=== PATIENT | male | born 1975 | race Caucasian/White ===

== ENCOUNTER 2020-01-22 10:25 | Emergency (ER) | payer OTHER ==
[2020-01-22 10:40] VITALS: BP 156/99; PULSE 98; RESP 18; TEMP 98.1
--- NOTE | 2020-01-22 11:13 | XR ---
Left ankle HISTORY: Trauma and pain 3 views the left ankle, no comparisons There is mild soft tissue swelling present. Small ossific density is present distal to the medial mal leolus. Alignment and joint spaces are maintained. IMPRESSION: There may be a small avulsion injury at the level of the medial malleolus. No dislocation .
--- NOTE | 2020-01-22 11:17 | ED ---
Lower Extremity Injury HPI - General Chief Complaint: Extremity Injury, Lower Stated Complaint: [facility] Ankle injury Time Seen by Provider: 01/22/20 10:41 Source: patient Mode of arrival: ambulatory Limitations: no limitations - History of Present Illness Initial Comments: 44-year-old male presented for chief complaint of left ankle pain after injury. Patient states he is walking at work when he inverted his left ankle. Patient admits to pain of the medial and lateral malleolus. Patient denies any injury to the knee denies any head neck injury denies any injury to the low back or hip. Patient denies any numbness tingling or loss of sensation of the lower extremities he denies additional complaints upon arrival patient appears nontoxic. - Related Data Home Medications Medication Instructions Recorded Confirmed ALPRAZolam [Xanax] 0.25 - 0.5 mg PO BID PRN 12/21/13 01/22/20 Ibuprofen [Motrin] 600 mg PO Q6HR PRN 01/22/20 01/22/20 Losartan Potassium 100 mg PO DAILY 01/22/20 01/22/20 Allergies Allergy/AdvReac Type Severity Reaction Status Date / Time No Known Allergies Allergy Verified 01/22/20 11:21 Review of Systems ROS Statement: Those systems with pertinent positive or pertinent negative responses have been documented in the HPI. ROS Other: All systems not noted in ROS Statement are negative. Past Medical History Past Medical History: Hypertension History of Any Multi-Drug Resistant Organisms: None Reported Past Surgical History: No Surgical Hx Reported Additional Past Surgical History / Comment(s): dental. Past Psychological History: Anxiety Smoking Status: Never smoker Past Alcohol Use History: Rare Past Drug Use History: None Reported General Exam - General Exam Comments Initial Comments: General: The patient is awake and alert, in no distress, and does not appear acutely ill. Eye: Pupils are equal, round and reactive to light, extra-ocular movements are intact. No nystagmus. There is normal conjunctiva bilaterally. No signs of icterus. Cardiovascular: There is a regular rate and rhythm. No murmur, rub or gallop is appreciated. Respiratory: Lungs are clear to auscultation, respirations are non-labored, breath sounds are equal. No wheezes, stridor, rales, or rhonchi. Musculoskeletal: No openings of the skin. No bruising. Patient is swelling mostly in the lateral aspect tender over the medial and lateral malleolus. No joint laxity noted. Pain with range of motion. No foot pain no knee pain no pain to the [place] fibula and tibia. Strength preserved sensation intact proximal 1 distal to injury site +2 dorsalis pedis pulses equal b/l. Neurological: A&O x 3. CN II-XII intact grossly, There are no obvious motor or sensory deficits. Coordination appears grossly intact. Speech is normal. Skin: Skin is warm and dry and no rashes or lesions are noted. Psychiatric: Cooperative, appropriate mood & affect, normal judgment. Limitations: no limitations Course Vital Signs 01/22/20 10:35 Temperature 98.1 F Pulse Rate 98 Respiratory 18 Rate Blood Pressure 156/99 O2 Sat by Pulse 99 Oximetry Medical Decision Making - Medical Decision Making XR medial malleolus avulsion fracture Patient has suspected sprain lateral aspect. Patient neurovascularly intact. splinted and is to use crutches keeping splint in place until orthopedic f/u. pt discharged appearing well. Disposition Clinical Impression: Avulsion fracture of medial malleolus, Left ankle sprain, Left ankle pain, Closed left ankle fracture Disposition: HOME SELF-CARE Condition: Good Instructions (If sedation given, give patient instructions): Ankle Fracture (ED), Ankle Sprain (ED) Additional Instructions: Please use medication as discussed. Please follow-up with family doctor in the next 2 days, please see orthopedics in the next 2-3 days. Please return to emergency room if the symptoms increase or worsen or for any other concerns. Is patient prescribed a controlled substance at d/c from ED?: No Referrals: Kyle Abdalla MD [Primary Care Provider] - 1-2 days Epifanio Marie DO [Doctor of Osteopathic Medicine] - 1-2 days Time of Disposition: 11:33
== END 2020-01-22 12:00 | disposition home or self-care (01) ==
LOC: EC 10:25
DX: S82.52XA Displaced fracture of medial malleolus of left tibia, initial encounter for closed fracture (principal); I10 Essential (primary) hypertension; F41.9 Anxiety disorder, unspecified; Z79.899 Other long term (current) drug therapy; X50.1XXA Overexertion from prolonged static or awkward postures, initial encounter; Y93.01 Activity, walking, marching and hiking; Y92.69 Other specified industrial and construction area as the place of occurrence of the external cause; Y99.0 Civilian activity done for income or pay
CPT/HCPCS: 29515; 99283